=== PATIENT | female | born 1950 | race Caucasian/White ===

== ENCOUNTER 2020-06-03 10:23 | Inpatient (IN) ==
--- NOTE | 2020-05-26 10:52 | Anesthesiology Consultation ---
Date of Service May 26, 2020 Assessment & Plan (1) Encounter for pre-operative examination: Chart Review Chart Review: Acceptable Risk for Surgery (pending preop Covid testing ) and Patient NOT seen in Pre Admission Testing Per nursing assessment 05/26/20, patient resides in [facility]. Wears mask, uses good hand hygiene and socially distances. Did travel to [facility] to [facility] for lab work. No known Covid positive contacts or Covid related symptoms. Pt denies known Covid infection in the past 90 days. [place] pre[place] Cov[place]20 [place] [facility] [place]. Right TKA 09/14/17= Done under SAB at L3-4. History Surgery Operation Date: 06/03/20 09:55 Proposed Procedures p Left Total Knee Arthroplasty - Markie Smith DO Height/Weight Height: 5 ft 6 in Weight: 86.183 kg Allergies Allergy/AdvReac Type Severity Reaction Status Date / Time No Known Allergies Allergy Verified 05/26/20 09:47 Medications Home Medications Medication Instructions Recorded Confirmed Last Taken amlodipine 5 mg PO QDL 03/25/20 05/26/20 Unknown atorvastatin 10 mg PO HS 03/25/20 05/26/20 Unknown cholecalciferol (vitamin D3) 125 mcg PO QDL 03/25/20 05/26/20 Unknown [Vitamin D3] cyclobenzaprine 10 mg PO BID PRN 05/26/20 05/26/20 Unknown diclofenac sodium 2 g TOPICAL TID PRN 05/26/20 05/26/20 Unknown Past Medical History Medical History Cardiac murmur Does not follow with cardio; last ECHO from 2017 showed no significant valve issues Chronic back pain HTN (hypertension) Hyperlipemia Osteoarthritis SOB (shortness of breath) on exertion OUT OF SHAPE Past Family History Family History Father Colon cancer Diabetes Grandmother (Maternal) Colon cancer Other No family history of adverse response to anesthesia Past Surgical History Surgical History History of colonoscopy History of right knee joint replacement History of tooth extraction Social History Smoking Status: Former smoker Smoking End Date: QUIT YRS AGO Hx Alcohol Use: No Hx Substance Use: No substance use type: does not use Testing Laboratory Results 05/25/20= WBC: 5.79 H/H: 13.5/41.0 PLATELETS: 247 SODIUM: 146 POTASSIUM: 4.2 CHLORIDE: 107 CO2: 26 BUN: 11 CREATININE: 0.6 GLUCOSE: 96 HGB A1C: 5.9 PT: 12.4 PTT: 28 INR: 0.91 UA: Negative 03/30/2020 = T&S: B+, antibody negative Electrocardiogram Date: 03/30/20 Findings: + SB @ (59) and + no change from (September 04, 2017) Left axis deviation. Moderate voltage criteria for LVH, may be normal variant Chest X-Ray Date: 03/30/20 Findings: + NAD Echocardiogram Date: 08/31/17 EF: 55-59% LV Function: normal RWMA: + none Other Findings: + LVH (mild/concentric ) and + diastolic dysfunction (Grade I ) Left atrium is mildly enlarged. Mild AR.
--- NOTE | 2020-05-28 12:50 | History & Physical Report ---
Date of Service May 28, 2020 date of surgery: 06/03/20 Procedure: Left Total Knee Arthroplasty Assessment & Plan (1) Arthritis of knee, left: Risks and benefits of procedure discussed in detail today, patient would like to proceed with a Left total knee replacement at [facility] as scheduled. will obtain medical clearance from Dr Franklin prior to surgery as well as obtain PATs at [facility]. Will place on ASA 81mg po bid x 1 month post op, f/u 2 weeks post op for routine post-operative care and x-ray, sooner if having any problems. will make arrangements for HHPT at the time of discharge. At this point in time, has failed conservative measures and would like to proceed with surgical intervention. The risks and benefits have been discussed including, but not limited to, risk of infection, nerve injury, stiffness, loss of motion, failure to improve, etc. Reasonable outcomes and options of treatment were discussed. An explanation of appropriate alternatives to the procedure that may be advantageous were discussed and their risks and benefits, as well as the risks and benefits of not proceeding with treatment. I offered to answer any additional inquiries concerning the treatment involved. All the patient's questions were answered. The patient is agreeable, understanding of the treatment plan and alternatives, and wishes to proceed with the treatment plan. History of Present Illness Chief Complaint: left knee pain Primary Care Provider: Baljinder Boland Ms Sousa is a 70 year old female who is here for a follow up of left knee pain presents for preop prior to a left total knee replacement. She presents with pain and stiffness on the left side. Currently the patient states that the symptoms are moderate-severe. The pain is described as aching and throbbing. The symptoms occur intermittently. The symptoms are aggravated by ascending stairs, daily activities, descending stairs, driving, exercise, first steps while awake, jumping, kneeling, movement, repetitive activities, sleeping on the affected side, squatting, standing, walking and weight bearing. In addition to left knee pain the patient is also experiencing decreased mobility, difficulty bending, difficulty going to sleep, instability, joint pain, limping, locking, nighttime awakening, pain, stiffness, tenderness and weakness. The patient has had a previous x-ray. Prior NSAIDs include Aleve. Patient has had previous therapy. Allergies Allergy/AdvReac Type Severity Reaction Status Date / Time No Known Allergies Allergy Verified 05/26/20 09:47 Home Medications Medication Instructions Recorded Confirmed Type amlodipine 5 mg PO QDL 03/25/20 05/26/20 History atorvastatin 10 mg PO HS 03/25/20 05/26/20 History cholecalciferol (vitamin D3) 125 mcg PO QDL 03/25/20 05/26/20 History [Vitamin D3] cyclobenzaprine 10 mg PO BID PRN 05/26/20 05/26/20 History diclofenac sodium 2 g TOPICAL TID PRN 05/26/20 05/26/20 History Past Med/Surg History Medical History Cardiac murmur Does not follow with cardio; last ECHO from 2017 showed no significant valve issues Chronic back pain HTN (hypertension) Hyperlipemia Osteoarthritis SOB (shortness of breath) on exertion OUT OF SHAPE Surgical History History of colonoscopy History of right knee joint replacement History of tooth extraction Family History Father Colon cancer Diabetes Grandmother (Maternal) Colon cancer Other No family history of adverse response to anesthesia Social History Smoking Status: Former smoker Smoking End Date: QUIT YRS AGO; Second Hand Exposure: Yes (FATHER SMOKED); Hx Alcohol Use: No Hx Substance Use: No Preferred Language: Danish Communication Ability: Effective Rehabilitation Specialist Required: No Beliefs That Will Affect Care: None Current Living Situation: Spouse Other Information That Helps Us Care for You: No Feels Safe at Home: Yes Safety Concerns: Feels Safe At This Time Assistive Devices: Glasses Review of Systems Review of Systems: All systems reviewed & are unremarkable except as noted in HPI & below Constitutional: no fever, no chills and no sweats Respiratory: no cough and no dyspnea Cardiovascular: no chest pain, no dyspnea and no orthopnea Gastrointestinal: no abdominal pain, no nausea and no vomiting Musculoskeletal: as per Subjective / HPI Physical Exam Physical Exam: Ht: 5ft 6in Wt: 86kg Constitutional: WD/WN, vitals as above no acute distress Respiratory: normal respiratory effort, lungs clear to auscultation no respiratory distress, no labored breathing and does not use accessory muscles Cardiovascular: RRR, no murmur, no edema Gastrointestinal (Abdomen): normal bowel sounds, soft, nontender, no hepatosplenomegaly Musculoskeletal: Knee: + knee abnormal to inspection (Left Knee), + effusion (+1 effusion), + limited ROM of knee (ROM 0/3/110), + knee ROM with crepitation, + joint line tenderness (medial joint line) and + Bebeto's sign positive; no deformity, no skin erythema, no ecchymosis, no valgus laxity, no varus laxity, anterior drawer test negative, Tangela's sign negative and pivot shift test negative Results & Data Results & Data ([place]) Diagnostic Findings Left Knee X-ray: left knee series confirm advanced degenerative changes to the left knee, grea test medial compartments and patellofemoral joint, showing joint space narrowing, osteophyte formation and subchondral sclerosis. no acute bony pathology noted.
[~2020-06-03 10:23] MED LIST: BUPIVACAINE 0.5 % 5 MG/1 ML PF 10ML VIAL ONE; LR 500ML BOLUS, THEN 15ML/HR IV SCH; ROPIVACAINE 0.5% 5 MG/ML 30 ML VIAL ONE; ROPIVACAINE 0.5% HCL/PF 150 MG, BUPIVACAINE 0.75% MPF 20 ML, EPINEPHrine 30MG/30ML (OR ... INSTIL SCH
[2020-06-03] MEDS ORDERED: MIDAZOLAM HCL 1 MG/ML 2ML VIAL ONE ×3 (11:33→13:30)
[2020-06-03] MEDS ORDERED: PROPOFOL IV EMULSION 10 MG/ML 20 ML VIAL IV ONE (11:37)
[2020-06-03] MEDS ORDERED: ONDANSETRON INJ 2 MG/ML 2 ML VIAL ONE (11:37)
--- NOTE | 2020-06-03 11:43 | History & Physical Bridge Note ---
Date of Service June 03, 2020 History & Physical Bridge Note I have examined the patient, reviewed the History & Physical and in the interval since the performance of the History & Physical I have noted the following changes of clinical significance: no changes noted
[2020-06-03] MEDS ORDERED: FAMOTIDINE 20 MG TAB ONE (11:56)
[2020-06-03] MEDS ORDERED: CeleBREX 200 MG CAP ONE (11:56)
[2020-06-03] MEDS ORDERED: METOCLOPRAMIDE HCL 10 MG TABLET ONE (11:57)
[2020-06-03] MEDS ORDERED: GABAPENTIN 300 MG CAP ONE (11:57)
[2020-06-03] MEDS ORDERED: ceFAZolin 2,000 MG/15 ML IV PUSH IV ONE (12:08)
[2020-06-03] MEDS ORDERED: ORTHO JOINT ANESTHETIC ONE (12:18)
[2020-06-03] MEDS ORDERED: BACITRACIN INJ 50,000 UNIT VIAL ONE (12:18)
[2020-06-03] MEDS ORDERED: ONDANSETRON INJ 2 MG/ML 2 ML VIAL IV PRN ×2 (12:40→15:48)
[2020-06-03] MEDS ORDERED: ePHEDrine sulfate 50 MG/ML AMP IV PRN (12:40)
[2020-06-03] MEDS ORDERED: HYDROmorphone INJ 1 MG/ML SYRINGE IV PRN ×2 (12:40→15:48)
[2020-06-03] MEDS ORDERED: ATROPINE SULFATE 0.1 MG/ML 10ML SYR IV PRN (12:40)
[2020-06-03] MEDS: TRANEXAMIC ACID / 0.7% NACL 1000MG/100ML BAG IV ONE (12:40)
[2020-06-03] MEDS ORDERED: TRANEXAMIC ACID / 0.7% NACL 1,000 MG/100 ML BAG IV ONE (14:22)
--- NOTE | 2020-06-03 14:25 | Operative Report ---
Post Operative Report Pre & Post Diagnosis Operation Date: 06/03/20 12:30 Pre-Op Diagnosis: Unilateral Primary Osteoarthritis Knee Left Post-Op Diagnosis: Unilateral Primary Osteoarthritis Knee Left I identified the patient and participated in the time-out.: Yes Procedure Operation Date: 06/03/20 12:30 Actual Procedures p Left Total Knee Arthroplasty(Left) utilizing [employer] journey 2 with block total knee arthroplasty size 5 femur 4 tibia 9 polythirty 2 oval patella- Markie Smith DO Surgeon Markie Smith DO Knitting Supervisor Tj ANNE Estimated Blood Loss 5 Findings Consistent with Post-Op Diagnosis Patient presents with severe end-stage tricompartmental degenerative joint disease of the left knee varus alignment subchondral cystic changes marginal osteophytes [id number] eburnated with moderate to large effusion Specimens Bone and cartilage Drains Medium bore Hemovac Anesthesia Type MAC Spinal Regional Disposition Accompanied Patient To Recovery: No Disposition: Recovery Room Indications Patient presents with ongoing planes of pain attributable to her left knee is been no response to conservative management with physical therapy anti- inflammatories relative rest activity modification corticosteroid injection Visco supplementation presents for total knee arthroplasty above findings were noted. Description of Procedure After proper prepping and draping of the left lower extremity anterior midline incision was made over the region of the extensor extensor mechanism after meticulous hemostasis was obtained and maintained in subcutaneous tissues a medial parapatellar incision was made The patella was subluxed lateralward the medial lateral gutter were cleaned from any hypertrophic synovitis and scar tissue of the distal femoral block was placed and the distal femoral osteotomy cut was made subsequently the chamfers anterior and posterior osteotomy cuts were made utilizing the 4-in-1 block the tibia was subsequently subluxed anteriorward medial and ateral meniscal remnants were excised in their entirety remnants of the anterior and posterior cruciate ligaments were excised in their entirety excellent exposure of the proximal tibia was obtained the tibial osteotomy guide was placed on the proximal tibial osteotomy cut was made once again the knee was irrigated with copious amounts of sterile saline solution the patella was subsequently everted lateralward thickened scar tissue around the patella was removed the patella was subsequently cut utilizing a freehand technique and was drilled prepared for final preparation and placement of patella socially flexion-extension gaps were checked and the equal and symmetric trials were placed to the appropriate femoral and tibial trials with poly-spacer being placed for equal flexion and extension gaps and full range of motion including extension to 0 and flexion to 140 the trial components after having been taken to recovery range of motion was subsequently removed meticulous hemostasis was obtained and maintained subsequently a knee block injection of joint cocktail including ropivacaine 0.5% 150 mg. Bupivacaine 0.5% epinephrine 1-200,030 mL's toradol 30 mg dexamethasone 4 mg ketamine 10 mg clonidine 100 micrograms normal saline solution 30 mg was infiltrated into the soft tissues of the posterior knee medial lateral gutters and periosteal synovium special attention was paid to protect neurovascular structures at all times subsequently trial components having been removed the knee was irrigated with sterile saline solution. debris was removed the proximal tibia was subsequently prepared and was made ready for the placement of the tibial component tibial component was also cemented and tamped into position the femoral component was subsequently placed and cemented in the position the patellar component was subsequently cemented in position because hemostasis once again obtained and maintained wound having been thoroughly irrigated with debridement and debridement lavage was performed as well as a medial parapatellar incision closed with #1 Vicryl in interrupted fashion subcutaneous was closed with #2 Vicryl skin was closed with skin clips. PA-C was necessary for prepping and drapping as well as wound closure of deep fascia Sub cutaneous tissue and skin and was necessary for the case. A sterile compressive dressing was placed patient was taken to recovery in stable condition of report dictated by Luis I attest to the content of the Intraoperative Record and any orders documented therein. Any exceptions are noted below. I attest to the content of the Intraoperative Record and any orders documented therein. Any exceptions are noted below.
--- NOTE | 2020-06-03 15:41 | XRay Report ---
XR knee LT 1 or 2V routine HISTORY: 70 years-old Female Surgical Post Op left knee total joint arthroplasty COMPARISON: None TECHNIQUE: 2 views of the left knee FINDINGS: Left knee total joint arthroplasty and patella resurfacing. Expected postsurgical soft tissue swellin g and deep tissue air with surgical drainage catheter. Satisfactory alignment without acute fracture or unexpected opaque foreign body. IMPRESSION: Left knee total joint arthroplasty and patella resurfacing with expected postoperative ch anges. ACT 112: Negative or not required by law. The above report was generated using voice recognition software. It may contain grammatical, syntax o r spelling errors. Electronically signed by: Vincent Garcia M.D. 06/03/2020 3:40 PM
[2020-06-03] MEDS ORDERED: METOCLOPRAMIDE HCL INJ 5 MG/ML 2 ML VIAL IV PRN (15:48)
[2020-06-03] MEDS ORDERED: MAGNESIUM HYDROXIDE SUSP 30 ML UDC PO PRN (15:48)
[2020-06-03] MEDS ORDERED: diphenhydrAMINE Capsule 25 MG CAP PO PRN (15:48)
[2020-06-03] MEDS ORDERED: oxyCODONE HCL IR 5 MG TAB (IMMEDIATE RELEASE) PO PRN (15:48)
[2020-06-03] MEDS ORDERED: bisacodyL 10 MG SUPP PR PRN (15:48)
[2020-06-03] MEDS ORDERED: SODIUM CHLORIDE 0.9% 1000ML 1,000 ML IV SCH (15:48)
[2020-06-03] MEDS ORDERED: NALOXONE HCL 0.4 MG/1 ML VIAL/CARP IV PRN (15:48)
[2020-06-03] MEDS ORDERED: CYCLOBENZAPRINE HCL 10 MG TAB PO PRN (15:50)
[2020-06-03] MEDS: KETOROLAC TROMETHAMINE 15 MG/ML VIAL IV SCH ×2 (16:35→22:10)
[2020-06-03] MEDS: ACETAMINOPHEN 500 MG TAB PO SCH ×2 (16:35→22:10)
--- NOTE | 2020-06-03 17:01 | Anesthesiology Progress Note ---
Date of Service June 03, 2020 Anesthesia Post Procedure Vital Signs Vital Signs: Temp Pulse Pulse Resp BP BP Pulse Ox 06/03/20 16:42 36.5 C 53 L 14 146/79 H 98 06/03/20 16:13 36.3 C L 54 L 16 144/80 H 97 06/03/20 15:45 36.3 C L 56 L 16 131/74 100 06/03/20 15:30 36.3 C L 58 L 18 129/68 95 06/03/20 15:20 59 L 15 122/65 96 06/03/20 15:11 36.3 C L 74 16 131/71 98 06/03/20 11:31 36.8 C 72 18 152/82 H 97 06/03/20 10:47 36.8 C 77 18 176/89 H 96 Transfer of Care Handoff Completed per policy Notes Mental Status: alert / awake / arousable and participated in evaluation Patient Amnestic to Procedure: Yes Nausea / Vomiting: adequately controlled Pain: adequately controlled Airway Patency, RR, SpO2: stable & adequate BP & HR: stable & adequate Hydration State: stable & adequate Anesthetic Complications: no major complications apparent and Pt Satisfied with anesthetic care
[2020-06-03] MEDS: ceFAZolin 2000MG 2,000 MG/15 ML SYR IV SCH (20:38)
[2020-06-03] MEDS: SENNA 8.6 MG TAB PO SCH (22:10)
[2020-06-03] MEDS: DOCUSATE SODIUM 100 MG CAP PO SCH (22:10)
[2020-06-03] MEDS: ASPIRIN 81 MG ECTAB PO SCH (22:10)
[2020-06-03] MEDS: ATORVASTATIN 10 MG TAB PO SCH (22:10)
[2020-06-04] MEDS: KETOROLAC TROMETHAMINE 15 MG/ML VIAL IV SCH ×2 (03:31→09:56)
[2020-06-04] MEDS: ceFAZolin 2000MG 2,000 MG/15 ML SYR IV SCH (03:32)
[2020-06-04] MEDS: ACETAMINOPHEN 500 MG TAB PO SCH ×3 (05:41→21:00)
[2020-06-04 06:01] LABS: Hematocrit (blood only) 32.4 % (37-47); Hemoglobin 10.7 g/dL (12.0-16.0); Mean Corpuscular Hemoglobin 29.1 pg (25-34); Mean Platelet Volume 10.2 fL (7.4-10.4); Platelet Count 238 K/uL (130-400); RDW Coefficient of Variation 12.9 % (11.5-14.5); RDW Standard Deviation 41.6 fL (36.4-46.3); Red Blood Count 3.68 M/uL (4.2-5.4); White Blood Count 10.16 K/uL (4.8-10.8)
[2020-06-04 06:31] LABS: BUN Creatinine Ratio 16.4 (10-20); Calcium 8.5 mg/dl (8.5-10.1); Est GFR (African American) 103.9; Est GFR (Non-African American) 89.6
--- NOTE | 2020-06-04 07:12 | Orthopedic Progress Note ---
Date of Service June 04, 2020 Assessment & Plan (1) History of total left knee replacement: POD #1 s/p Left TKA pt/ot dvt proph with TONA/SCD/ASA plan for d/c home with home health when stable Admission and Anticipated Discharge Date Admission Date: June 03, 2020 Supervising Physician Co-Signing Physician Notes Patient seen and examined. Agree with OMID Brandt's note as above. Patient was doing well. Pain is overall well controlled. Has been ambulatory, making good progress with therapy. Subjective POD #1 s/p Left TKA Review of Systems Constitutional: no fever, no chills and no sweats Respiratory: no cough and no dyspnea Cardiovascular: no chest pain and no dyspnea Gastrointestinal: no abdominal pain, no nausea and no vomiting Physical Exam Physical Exam: Vital Signs Temp 36.9 C 06/04/20 03:29 Pulse 85 06/04/20 03:29 Resp 16 06/04/20 03:29 BP 150/61 H 06/04/20 03:29 Pulse Ox 95 06/04/20 03:29 Intake & Output 06/03/20 06/04/20 06/04/20 18:59 06:59 18:59 Intake Total 1614.227 / 2614.22 7 1000 / 2614.227 Output Total 5 / 530 525 / 530 Balance 1609.227 / 2084.22 7 475 / 2084.227 Weight 87.6 kg Intake: IV 614.227 / 1533.332 5022 / 1614.227 Lr 1,000 ml @ 15 mls/hr IV . 600 / 600 Q24H ANGÉLICA Rx#:[id number] Nss 1000ML 1,0 00 ml @ 100 mls/ 1000 / 1000 hr IV .Q10H SC H Rx#:[id number] TRANEXAMIC ACI D / 0.7% NACL 1, 14.227 / 14.227 000 mg In 100 ml @ 1 MG/KG/HR 8 .76 mls/hr IV ONCE ONE Rx#: [id number] IV Perioperative 1000 / 1000 Output: Drain Output 5 / 530 525 / 530 Knee Hemovac 5 / 530 525 / 530 Other: # Unmeasured Voi ds 2 Weight Measureme nt Method Standing Scale Constitutional: WD/WN, vitals as above no acute distress Musculoskeletal: Left Leg: NVDI, calf SNT, negative ryan sign. DP palpable, able to wiggle toes/ankle movement without difficulty. dressing clean dry and intact. Results & Data ([facility]) Vital Signs (Past 12 Hours) Vital Signs Temp Pulse Resp BP Pulse Ox 06/04/20 03:29 36.9 C 85 16 150/61 H 95 06/03/20 23:03 36.7 C 69 16 160/77 H 96 06/03/20 19:13 36.4 C L 67 16 148/71 H 97 Laboratory Results Laboratory Results WBC 10.16 K/uL (4.8-10.8) 06/04/20 05:39 RBC 3.68 M/uL (4.2-5.4) L 06/04/20 05:39 Hgb 10.7 g/dL (12.0-16.0) L 06/04/20 05:39 Hct 32.4 % (37-47) L 06/04/20 05:39 MCV 88.0 fL (80-100) 06/04/20 05:39 MCH 29.1 pg (25-34) 06/04/20 05:39 MCHC 33.0 g/dL (32-36) 06/04/20 05:39 RDW Std Deviation 41.6 fL (36.4-46.3) 06/04/20 05:39 RDW Coeff of Froilan 12.9 % (11.5-14.5) 06/04/20 05:39 Plt Count 238 K/uL (130-400) 06/04/20 05:39 MPV 10.2 fL (7.4-10.4) 06/04/20 05:39 Sodium 143 mmol/L (136-145) 06/04/20 05:39 Potassium 4.0 mmol/L (3.5-5.1) 06/04/20 05:39 Chloride 114 mmol/L (98-107) H 06/04/20 05:39 Carbon Dioxide 25 mmol/L (21-32) 06/04/20 05:39 Anion Gap 4.0 (3-11) 06/04/20 05:39 BUN 10 mg/dl (7-18) 06/04/20 05:39 Creatinine 0.63 mg/dl (0.6-1.2) 06/04/20 05:39 Est Cr Clr Drug Dosing 90.0 ml/min 06/04/20 05:39 Est GFR ( Amer) 103.9 06/04/20 05:39 Est GFR (Non-Af Amer) 89.6 06/04/20 05:39 BUN/Creatinine Ratio 16.4 (10-20) 06/04/20 05:39 Glucose 107 mg/dl (70-99) H 06/04/20 05:39 Calcium 8.5 mg/dl (8.5-10.1) 06/04/20 05:39 Blood Type B Positive 06/03/20 10:47 Antibody Screen NEGATIVE 06/03/20 10:47 Diagnostic Findings XR knee LT 1 or 2V routine HISTORY: 70 years-old Female Surgical Post Op left knee total joint arthroplasty COMPARISON: None TECHNIQUE: 2 views of the left knee FINDINGS: Left knee total joint arthroplasty and patella resurfacing. Expected postsurgical soft tissue swelling and deep tissue air with surgical drainage catheter. Satisfactory alignment without acute fracture or unexpected opaque foreign body. IMPRESSION: Left knee total joint arthroplasty and patella resurfacing with expected postoperative changes.
[2020-06-04] MEDS: DOCUSATE SODIUM 100 MG CAP PO SCH ×2 (08:42→20:56)
[2020-06-04] MEDS: MULTIVITAMIN TAB PO SCH (08:42)
[2020-06-04] MEDS: ASPIRIN 81 MG ECTAB PO SCH ×2 (08:42→20:57)
[2020-06-04] MEDS: CHOLECALCIFEROL 1,000 UNITS 25 MCG TAB PO SCH (14:00)
[2020-06-04] MEDS: amLODIPine BESYLATE 5 MG TAB PO SCH (14:00)
[2020-06-04] MEDS: CeleBREX 200 MG CAP PO SCH (20:56)
[2020-06-04] MEDS: ATORVASTATIN 10 MG TAB PO SCH (20:58)
[2020-06-04] MEDS: SENNA 8.6 MG TAB PO SCH (20:58)
[2020-06-05] MEDS: ACETAMINOPHEN 500 MG TAB PO SCH ×2 (05:20→13:30)
[2020-06-05] MEDS: DOCUSATE SODIUM 100 MG CAP PO SCH (08:14)
[2020-06-05] MEDS: MULTIVITAMIN TAB PO SCH (08:14)
[2020-06-05] MEDS: CeleBREX 200 MG CAP PO SCH (08:14)
[2020-06-05] MEDS: ASPIRIN 81 MG ECTAB PO SCH (08:14)
--- NOTE | 2020-06-05 09:43 | Orthopedic Progress Note ---
Date of Service June 05, 2020 Assessment & Plan (1) History of total left knee replacement: POD #2 s/p Left TKA pt/ot dvt proph with TONA/SCD/ASA plan for d/c home with home health when stable Progressing well with physical therapy. Plan for discharge to home today. Admission and Anticipated Discharge Date Admission Date: June 03, 2020 Subjective Postop day 2 Patient just finishing up with her physical therapy session. She has progressed quite well and she feels fine today. Pain is controlled. Physical therapy states she is ambulating well and has gone up and down steps. Patient is hoping to go home today. Physical Exam Physical Exam: Her incision is benign. Mild swelling of the knee at this time. She does have some bloody drainage from her drain site after the drain was removed. Calves are soft nontender. Neurovascular is intact. Toes are m obile. Results & Data ([facility]) Vital Signs (Past 12 Hours) Vital Signs Temp Pulse Resp BP Pulse Ox 06/05/20 05:57 36.9 C 65 18 143/67 H 98
[2020-06-05] MEDS: CHOLECALCIFEROL 1,000 UNITS 25 MCG TAB PO SCH (10:44)
[2020-06-05] MEDS: amLODIPine BESYLATE 5 MG TAB PO SCH (10:44)
--- NOTE | 2020-06-15 15:05 | Discharge Summary ---
Date of Service June 15, 2020 Admission HPI Per Admitting Provider Ms Sousa is a 70 year old female who is here for a follow up of left knee pain presents for preop prior to a left total knee replacement. She presents with pain and stiffness on the left side. Currently the patient states that the symptoms are moderate-severe. The pain is described as aching and throbbing. The symptoms occur intermittently. The symptoms are aggravated by ascending stairs, daily activities, descending stairs, driving, exercise, first steps while awake, jumping, kneeling, movement, repetitive activities, sleeping on the affected side, squatting, standing, walking and weight bearing. In addition to left knee pain the patient is also experiencing decreased mobility, difficulty bending, difficulty going to sleep, instability, joint pain, limping, locking, nighttime awakening, pain, stiffness, tenderness and weakness. The patient has had a previous x-ray. Prior NSAIDs include Aleve. Patient has had previous therapy. Admission Exam Per Admitting Provider Physical Exam Physical Exam: Ht: 5ft 6in Wt: 86kg Constitutional: WD/WN, vitals as above no acute distress Respiratory: normal respiratory effort, lungs clear to auscultation no respiratory distress, no labored breathing and does not use accessory muscles Cardiovascular: RRR, no murmur, no edema Gastrointestinal (Abdomen): normal bowel sounds, soft, nontender, no hepatosplenomegaly Musculoskeletal: Knee: + knee abnormal to inspection (Left Knee), + effusion (+1 effusion), + limited ROM of knee (ROM 0/3/110), + knee ROM with crepitation, + joint line tenderness (medial joint line) and + Bebeto's sign positive; no deformity, no skin erythema, no ecchymosis, no valgus laxity, no varus laxity, anterior drawer test negative, Tangela's sign negative and pivot shift test negative Principal Diagnosis Left Knee Osteoarthritis Discharge Exam Date of Service June 05, 2020 Assessment & Plan (1) History of total left knee replacement: POD #2 s/p Left TKA pt/ot dvt proph with TONA/SCD/ASA plan for d/c home with home health when stable Progressing well with physical therapy. Plan for discharge to home today. Admission and Anticipated Discharge Date Admission Date: June 03, 2020 Subjective Postop day 2 Patient just finishing up with her physical therapy session. She has progressed quite well and she feels fine today. Pain is controlled. Physical therapy states she is ambulating well and has gone up and down steps. Patient is hoping to go home today. Physical Exam Physical Exam: Her incision is benign. Mild swelling of the knee at this time. She does have some bloody drainage from her drain site after the drain was removed. Calves are soft nontender. Neurovascular is intact. Toes are mobile. Results & Data ([facility]) Vital Signs (Past 12 Hours) Vital Signs Temp Pulse Resp BP Pulse Ox 06/05/20 05:57 36.9 C 65 18 143/67 H 98 Discharge Data Allergies Allergy/AdvReac Type Severity Reaction Status Date / Time No Known Allergies Allergy Verified 06/03/20 10:39 Consultations 06/03/20 15:48 Consult Case Management - Discharge Planning Routine Procedures Performed Operation Date: 06/03/20 12:30 Actual Procedures p Left Total Knee Arthroplasty(Left) - Markie Smith DO Ordered Studies 06/03/20 05:00 US - OR guided needle placemen Routine Hospital Course (1) Arthritis of knee, left: Pt was admitted on the above noted date and had the above noted surgery performed of which she tolerated well On her first post op day, she was feeling well. Pain was controlled and she was with out complaints. Dressings were C/D/I. Calves soft, NT. NV intact. Hgb was 10. She was started on her PT/OT protocols and continued on her DVT prophylaxis and pain management. By her second post op day, she continued to do well with her PT. She was ambulating well and had gone up and down the steps. Incision was benign. Calves remained soft,NT. N/V was intact. She continued to remain stable and was felt she could be discharged to home. Total Time Total Time Spent Total Time Spent (In Minutes): 5 Discharge Plan Discharge Items Patient Disposition: Home - Self-Care Reason For Visit: Unilateral Primary Osteoarthritis Knee Left Discharge Diagnosis: Osteoarthritis left knee Activity: Per Instructions section Weightbearing: Left weightbearing Weightbearing Comment: As tolerated with walker Non-emergency contact: Surgeon Call non-emergency contact if: your pain is not controlled, your temperature is above 101.5, your wound has increased redness and your wound has increased drainage Follow-up/Referrals: Baljinder Boland [Primary Care Provider] - Diet: Regular Addtl Attending Provider Instructions: ACTIVITY RECOMMENDATIONS: SELF CARE INSTRUCTIONS AFTER TOTAL KNEE REPLACEMENT A. You may need to continue a physical therapy program after discharge from the hospital. There are several options available to you. Your doctor will assist you in selecting the best one for you. 1. An out-patient facility 2 to 3 times a week for therapy or home therapy. 2. Continue working on all exercises taught to you in the hospital. Your goals should be to increase bending of your knee to 90 degrees and beyond and to fully straighten your knee. B. You may progress at your own pace from walking with a walker or crutches to a cane; then to no assistive devices. C. Make walking a part of your daily routine. Be up as much as comfortable with rest periods throughout the day. Rest with leg elevation is very important. Use the ice wrap frequently for the first 3-4 weeks. D. There are no restrictions on activities. You may ride in a car, shop, participate in food and beverage attendant and all social activities. E. Wear the long elastic stockings (TONA hose) 20 hours a day for 2 weeks after surgery. They can be removed several times a day for laundering and for a bath. F. You may shower, no tub baths until cleared by your doctor. SPECIAL CARE INSTRUCTIONS: VERY IMPORTANT TO READ AND REVIEW A. There are a few signs you need to watch for after you are home. Call [facility] if you notice any of the followin. Increased severe knee pain. Some pain is expected especially when you exercise. 2. Increased swelling in your leg or knee; pain or swelling of the calf muscle in either lower leg. 3. Any fluid drainage from the incision. 4. Shortness of breath or chest pain. B. Please call [facility] at if you have any concerns or questions about your operation or recovery. The doctor or his nurse will return your call promptly. C. You must take antibiotics before dental work, bladder, bowel or other surgery. Your doctor will provide you with a permanent care to carry describing this precaution. IMPORTANT: * REMEMBER TO TAKE ASPIRIN, 81 MG, TWICE DAILY FOR 4 WEEKS UNLESS OTHERWISE DIRECTED. THIS IS YOUR BLOOD THINNER. * HIGH RISK PATIENTS MAY BE PRESCRIBED A STRONGER BLOOD THINNER. THIS WILL BE PROVIDED AT DISCHARGE. * CALL IF INCREASED PAIN, REDNESS, DRAINAGE OR FEVER GREATER THAT 101. * WEAR TONA HOSE 20 HOURS PER DAY FOR 2 WEEKS. * DERMABOND Prineo- This is a mesh tape dressing that is covered with glue. It should remain in place until the incision is properly healed, usually 10-14 days. This dressing is designed to naturally slough off. You may trim the excess mesh tape as it peels off. Incision may be briefly wet in a shower. Dry immediately by blotting with a clean, dry towel. Do not bath or swim until instructed by your doctor. Do not scratch, rub, or pick at the dressing. Do not apply any topical ointments or lotions until dressing is completely removed and/or instructed by your doctor. There may be a small piece of suture material at one end of your incision. Do not pull or trim this. If it is bothersome or catching on clothing, you may cover it with a band-aid. Call the office with any questions you may have. . FOLLOW UP VISIT: If appointment is not already scheduled: Please call [facility] to make a follow-up appointment for 2 weeks after your surgery at . Stand-Alone Forms: [facility] Training Advisor, Opioid Pain Management, Smoking Cessation Medications and DC Order Prescriptions: New celecoxib [Celebrex] 200 mg Capsule 200 mg PO BID 14 Days Qty: 28 RF: 0 aspirin 81 mg Tablet,Delayed Release (Dr/Ec) 81 mg PO BID 30 Days Qty: 60 RF: 0 acetaminophen 500 mg Tablet 1,000 mg PO Q8 14 Days Qty: 84 RF: 0 polyethylene glycol 3350 [Miralax] 17 gram powder in packet 17 g PO DAILY PRN (Reason: constipation) Qty: 5 RF: 0 cefadroxil 500 mg capsule 500 mg PO BID Qty: 14 RF: 0 oxycodone 5 mg Tablet 5 mg PO Q4H MDD 6 PRN (Reason: pain) Qty: 30 RF: 0 Continued cyclobenzaprine 10 mg Tablet 10 mg PO BID PRN (Reason: Pain) RF: 0 diclofenac sodium 1 % Gel 2 g TOPICAL TID PRN (Reason: Pain) RF: 0 atorvastatin 10 mg Tablet 10 mg PO HS RF: 0 amlodipine 5 mg Tablet 5 mg PO QDL RF: 0 cholecalciferol (vitamin D3) [Vitamin D3] 125 mcg (5,000 unit) Tablet 125 mcg PO QDL RF: 0 Discharge Orders: Discharge Order (Routine); Ordered 06/05/20 Ordered By: Jayden Cardoza/Other Patient Handouts: DVT Post Op Prevention, ED Shlomo Gomez Admission Data Admit Date/Time: 06/03/20 15:20 Attending Provider: Markie Smith Admit Provider: Markie Smith Primary Care Provider: Baljinder Boland Other Interventions: Discharge Summary Assessment (RN) Last Done: 06/05/20 09:59
== END 2020-06-05 14:47 | disposition home or self-care (01) | DRG 470 ==
LOC: ASU 10:23 → 3E 10:23 → OBSVTOIN 15:20